=== PATIENT | female | born 1945 | race Caucasian/White ===

== ENCOUNTER 2016-09-10 09:45 | Outpatient (CLI) | payer MEDICARE, BC ==
[2016-09-10 11:34] LABS: ALT (SGPT) 14 U/L (0-55); AST (SGOT) 16 U/L (5-34); Alkaline Phosphatase 70 U/L (40-150); Bilirubin, Direct 0.2 mg/dL (0.1-0.3); Bilirubin, Total 0.4 mg/dL (0.2-1.2); LDL Cholesterol, Calculated 88 mg/dL; Protein, Total 6.5 g/dL (5.8-8.1)
== END 2016-09-10 09:46 | disposition home or self-care (01) ==
LOC: HPCALD 09:45
PROVIDERS: ATTEND Family Medicine
DX: E78.2 Mixed hyperlipidemia (principal); E03.9 Hypothyroidism, unspecified
CPT/HCPCS: 36415; 80061; 80076; 84443

== ENCOUNTER 2017-03-18 10:52 | Outpatient (CLI) | payer MEDICARE, BC ==
[2017-03-18 13:03] LABS: #Basophils 0.1 thou/uL (0.0-0.2); #Eosinphils 0.3 thou/uL (0.0-0.7); #Lymphocytes 2.3 thou/uL (1.20-3.40); #Monocytes 0.6 thou/uL (0.11-0.59); #Neutrophils 3.4 thou/uL (1.40-6.50); %Basophils 1.5 % (0.0-1.0); %Eosinophils 4.8 % (0.0-10.0); %Lymphocytes 34.1 % (21.0-51.0); %Monocytes 8.4 % (0.0-10.0); %Neutrophils 51.2 % (42.0-75.0); Hemoglobin 13.1 g/dL (12.0-16.0); Mean Corpuscular HGB CONC 32.6 g/dL (32.0-36.0); Mean Corpuscular Hemoglobin 29.8 pg (27.0-31.0); Mean Corpuscular Volume 91.6 fl (81.0-99.0); Mean Platelet Volume 6.6 fL (7.4-10.4); Platelet Count 257 thou/uL (130-400); RBC Distribution Width 12.1 % (11.5-14.5); Red Blood Cell (RBC) Count 4.41 mill/uL (4.20-5.40); White Blood Cell (WBC) Count 6.7 thou/uL (4.8-10.8)
[2017-03-18 13:11] LABS: ALT (SGPT) 16 U/L (8-55); AST (SGOT) 21 U/L (5-34); Alkaline Phosphatase 74 U/L (40-150); Anion Gap 12 mmol/L (10-20); BUN (Urea Nitrogen) 12 mg/dL (9.8-20.1); Bilirubin, Total 0.6 mg/dL (0.2-1.2); Calc. Creatinine Clearance 0 mL/min (70-130); Calcium 9.1 mg/dL (7.8-10.44); Carbon Dioxide 27 mmol/L (23-31); Cardiac Risk 2.9 (Less than 4.5); Chloride 109 mmol/L (98-107); Cholesterol 161 mg/dl (< 200 Desired); Estimated GFR-MDRD 78; Globulin 2.3 g/dL (2.4-3.5); Glucose 79 mg/dL (80-115); HDL Cholesterol 56 mg/dL (>60 Neg Risk); LDL Cholesterol, Calculated 85 mg/dL; Potassium 4.1 mmol/L (3.5-5.1); Protein, Total 6.3 g/dL (6.0-8.3); Sodium 144 mmol/L (136-145); Triglycerides 100 mg/dL (Less than 150)
== END 2017-03-18 10:53 | disposition home or self-care (01) ==
LOC: HPCALD 10:52
PROVIDERS: ATTEND Family Medicine
DX: E78.2 Mixed hyperlipidemia (principal); E03.9 Hypothyroidism, unspecified
CPT/HCPCS: 36415; 80053; 80061; 84443; 85025

== ENCOUNTER 2019-02-16 10:00 | Outpatient (CLI) | payer MEDICARE, BC ==
--- NOTE | 2019-02-16 18:37 | RAD ---
CHEST TWO VIEWS: 02/16/2019 COMPARISON: 06/20/2016 FINDINGS: The heart size remains unchanged. There is no vascular congestion, edema, or pleural effusion. La t calcification is seen in the aortic arch. The mediastinum appears normal. IMPRESSION: No acute thoracic finding. POS: HOME
== END 2019-02-16 10:01 | disposition home or self-care (01) ==
LOC: BURRAD 10:00
PROVIDERS: ATTEND Nurse Practitioner Family
DX: R06.02 Shortness of breath (principal)
CPT/HCPCS: 71046

== ENCOUNTER 2020-11-27 16:31 | Outpatient (CLI) | payer MEDICARE, BC | END 2020-11-27 16:32 | disposition home or self-care (01) | LOC: BURRAD 16:31 | PROVIDERS: ATTEND Family Medicine | DX: R06.00 Dyspnea, unspecified (principal); R53.83 Other fatigue; I51.7 Cardiomegaly | CPT/HCPCS: 71046 ==

== ENCOUNTER 2023-02-11 08:31 | Outpatient (CLI) | payer MEDICARE ==
[2023-02-11] MEDS ORDERED: Iopamidol 370 76% 100 ML VIAL ONE (14:11)
== END 2023-02-11 08:32 | disposition home or self-care (01) ==
LOC: BURCT 08:31
PROVIDERS: ATTEND Family Medicine
DX: R07.89 Other chest pain (principal); R06.09 Other forms of dyspnea; N20.0 Calculus of kidney; M47.814 Spondylosis without myelopathy or radiculopathy, thoracic region; M47.816 Spondylosis without myelopathy or radiculopathy, lumbar region; M43.16 Spondylolisthesis, lumbar region
CPT/HCPCS: 71260; 74160; Q9967